=== PATIENT | female | born 2000 | race American Indian/Alaskan Native ===

== ENCOUNTER 2020-10-19 09:31 | Emergency (ER) | payer MEDICAID ==
[2020-10-19 10:05] VITALS: BP 101/70
--- NOTE | 2020-10-19 11:36 | Emergency Department Report ---
ED General Adult HPI - General Chief complaint: Anxiety Stated complaint: ANXIETY Time Seen by Provider: 10/19/20 11:02 Source: patient Mode of arrival: Ambulatory Limitations: No Limitations - History of Present Illness Initial comments: 20-year-old -German female patient presents with complaints of anxiety and increasing panic attacks since being out of her sertraline for 1 month. Patient states she has been taking sertraline for more than 1 year, however since moving to [place], she has had difficulty finding a psychiatrist who takes her insurance. She denies any SI/HI or hallucinations. Patient states sertraline 25 mg did work well for her. - Related Data Previous Rx's Medication Instructions Recorded Last Taken Type Ibuprofen [Motrin] 600 mg PO Q8H PRN #30 tablet 06/11/14 Unknown Rx traMADoL [Ultram] 50 mg PO Q4HR PRN #30 tablet 06/11/14 Unknown Rx Sertraline [Zoloft] 25 mg PO QDAY 30 Days #30 tab 10/19/20 Unknown Rx Allergies Allergy/AdvReac Type Severity Reaction Status Date / Time No Known Allergies Allergy Unverified 06/09/14 09:33 ED Review of Systems ROS: Stated complaint: ANXIETY Other details as noted in HPI Constitutional: denies: chills, diaphoresis, fever, malaise Respiratory: denies: cough, shortness of breath Cardiovascular: denies: chest pain Gastrointestinal: denies: abdominal pain, nausea, vomiting Genitourinary: denies: urgency, dysuria, frequency, hematuria Neurological: denies: headache, weakness, numbness, paresthesias ED Past Medical Hx - Past Medical History Previous Medical History?: Yes Hx Hypertension: No Hx Congestive Heart Failure: No Hx Diabetes: No Hx Deep Vein Thrombosis: No Hx Renal Disease: No Hx Sickle Cell Disease: No Hx Seizures: No Hx Psychiatric Treatment: Yes (anxiety, depression) Hx Asthma: No Hx COPD: No Hx HIV: No - Surgical History Past Surgical History?: No - Social History Smoking Status: Current Every Day Smoker Substance Use Type: Alcohol - Medications Home Medications: Home Medications Medication Instructions Recorded Confirmed Last Taken Type Ibuprofen [Motrin] 600 mg PO Q8H PRN #30 tablet 06/11/14 Unknown Rx traMADoL [Ultram] 50 mg PO Q4HR PRN #30 tablet 06/11/14 Unknown Rx Sertraline [Zoloft] 25 mg PO QDAY 30 Days #30 tab 10/19/20 Unknown Rx ED Physical Exam - General Limitations: No Limitations General appearance: alert, in no apparent distress - Head Head exam: Present: atraumatic, normocephalic - Eye Eye exam: Present: normal appearance. Absent: scleral icterus - Neck Neck exam: Present: normal inspection - Respiratory Respiratory exam: Present: normal lung sounds bilaterally. Absent: respiratory distress - Cardiovascular Cardiovascular Exam: Present: regular rate, normal rhythm. Absent: systolic murmur, diastolic murmur, rubs, gallop - Neurological Exam Neurological exam: Present: alert, oriented X3, normal gait - Psychiatric Psychiatric exam: Present: normal affect, normal mood. Absent: depressed, agitated, anxious, manic, homicidal ideation, suicidal ideation - Skin Skin exam: Present: warm, dry, intact, normal color. Absent: rash ED Course Vital Signs 10/19/20 10:02 Temperature 98.5 F Pulse Rate 99 H Respiratory 18 Rate Blood Pressure 101/70 O2 Sat by Pulse 99 Oximetry ED Medical Decision Making - Medical Decision Making 20-year-old -German female patient presents with complaints of anxiety and increasing panic attacks since being out of her sertraline for 1 month. Patient states she has been taking sertraline for more than 1 year, however since moving to [place], she has had difficulty finding a psychiatrist who takes her insurance. She denies any SI/HI or hallucinations. Patient states sertraline 25 mg did work well for her. Refill given and patient also given Dr. Murray, psychiatry to follow-up with. Her vitals are normal, she is well-appearing stable for discharge home. Strict return precautions were discussed in detail with patient who verbalizes understanding. Critical care attestation.: If time is entered above; I have spent that time in minutes in the direct care of this critically ill patient, excluding procedure time. ED Disposition Clinical Impression: Anxiety Disposition: DC-01 TO HOME OR SELFCARE Is pt being admited?: No Condition: Stable Instructions: Managing Anxiety, Adult Prescriptions: Sertraline [Zoloft] 25 mg PO QDAY 30 Days #30 tab Referrals: LISA MURRAY MD [Staff Physician] - 3-5 Days
== END 2020-10-19 11:44 | disposition home or self-care (01) ==
LOC: ED 09:31
DX: F41.9 Anxiety disorder, unspecified (principal); F32.9 Major depressive disorder, single episode, unspecified; F17.200 Nicotine dependence, unspecified, uncomplicated; Z79.1 Long term (current) use of non-steroidal anti-inflammatories (NSAID); Z79.899 Other long term (current) drug therapy
CPT/HCPCS: 99282

== ENCOUNTER 2020-11-27 09:31 | Emergency (ER) | payer MEDICAID ==
[2020-11-27 10:02] VITALS: BP 116/62
[2020-11-27] MEDS ORDERED: METOCLOPRAMIDE 10 MG/2 ML INJ IV ONE (10:21)
[2020-11-27] MEDS ORDERED: SODIUM CHLORIDE 0.9% 1000 ML 1,000 ML IV ONE ×2 (10:21→11:31)
[2020-11-27] MEDS ORDERED: ACETAMINOPHEN 500 MG TAB PO ONE (10:21)
[2020-11-27 10:49] LABS: Basophils % (Auto) 0.5 % (0.0-1.8); Eosinophils # (Auto) 0.2 K/mm3 (0.0-0.4); Eosinophils % (Auto) 2.2 % (0.0-4.3); Hematocrit 41.2 % (30.3-42.9); Hemoglobin 14.3 gm/dl (10.1-14.3); Lymphocytes # (Auto) 1.7 K/mm3 (1.2-5.4); Lymphocytes % (Auto) 21.1 % (13.4-35.0); Mean Corpuscular HGB Conc 35 % (30-34); Mean Corpuscular Volume 98 fl (79-97); Monocytes # (Auto) 0.7 K/mm3 (0.0-0.8); Monocytes % (Auto) 8.4 % (0.0-7.3); Platelet Count 230 K/mm3 (140-440); Red Cell Distribution Width 12.6 % (13.2-15.2)
[2020-11-27 11:08] LABS: Blood Urea Nitrogen 12 mg/dL (7-17); Calcium 9.6 mg/dL (8.4-10.2); Hemolysis Index 4
[2020-11-27 11:10] LABS: BUN/Creatinine Ratio 20
[2020-11-27 11:11] LABS: Alanine Aminotransferase 16 units/L (7-56); Albumin 4.5 g/dL (3.9-5)
[2020-11-27 11:26] LABS: Bilirubin,Urine NEG (Negative); Blood,Urine NEG (Negative); Color,Urine Yellow (Yellow); Mucus,Urine 3+ /HPF
[2020-11-27 11:35] LABS: Bilirubin,Direct < 0.2 mg/dL (0-0.2)
--- NOTE | 2020-11-27 11:37 | Emergency Department Report ---
ED N/V/D HPI - General Chief complaint: Nausea/Vomiting/Diarrhea Stated complaint: 6 WKS /NO ENERGY/CANT EAT Time Seen by Provider: 11/27/20 10:05 Source: patient Mode of arrival: Ambulatory Limitations: No Limitations - History of Present Illness Initial comments: This is a 20-year-old female nontoxic, well nourished in appearance, no acute signs of distress presents to the ED with c/o of nausea and vomiting several days. Patient stated she is going about 6 weeks . Patient stated has some pelvic cramping as well. Denies any vaginal bleeding. Patient describes vomiting as food content. Patient denies any mid or upper abdominal pain, chest pain, short of breath, fever, chills, headache, stiff neck, numbness or tingling. Patient denies any diarrhea or constipation. Denies any blood in stool. Patient denies any urinary symptoms. Denies any vaginal discharge. Patient denies any recent travels. Patient denies any drug allergies significant past medical history. MD complaint: nausea, vomiting, other (pelvic cramping) -: days(s) Description of Vomiting: food contents Associated Abdominal Pain: No Radiation: none Severity: mild Pain Scale: 3 Quality: cramping Consistency: intermittent Improves with: none Worsens with: none Associated Symptoms: nausea/vomiting. denies: myalgias, chest pain, cough, diaphoresis, fever/chills, headaches, loss of appetite, malaise, rash, dysuria, shortness of breath, syncope, weakness - Related Data Previous Rx's Medication Instructions Recorded Last Taken Type Ibuprofen [Motrin] 600 mg PO Q8H PRN #30 tablet 06/11/14 Unknown Rx traMADoL [Ultram] 50 mg PO Q4HR PRN #30 tablet 06/11/14 Unknown Rx Sertraline [Zoloft] 25 mg PO QDAY 30 Days #30 tab 10/19/20 Unknown Rx Metoclopramide [Reglan] 10 mg PO Q12H PRN #12 tab 11/27/20 Unknown Rx 21/Iron Fu/Folic Acid 1 each PO DAILY #30 tablet 11/27/20 Unknown Rx [ Complete Caplet] Allergies Allergy/AdvReac Type Severity Reaction Status Date / Time No Known Allergies Allergy Verified 11/27/20 09:59 ED Review of Systems ROS: Stated complaint: 6 WKS /NO ENERGY/CANT EAT Other details as noted in HPI Comment: All other systems reviewed and negative Constitutional: denies: chills, fever Eyes: denies: eye pain, eye discharge, vision change ENT: denies: ear pain, throat pain Respiratory: denies: cough, shortness of breath, wheezing Cardiovascular: denies: chest pain, palpitations Endocrine: no symptoms reported Gastrointestinal: nausea, vomiting. denies: abdominal pain, diarrhea, constipation, hematemesis, melena, hematochezia Genitourinary: denies: urgency, dysuria, discharge Musculoskeletal: denies: back pain, joint swelling, arthralgia Skin: denies: rash, lesions Neurological: denies: headache, weakness, paresthesias Psychiatric: denies: anxiety, depression Hematological/Lymphatic: denies: easy bleeding, easy bruising ED Past Medical Hx - Past Medical History Hx Hypertension: No Hx Congestive Heart Failure: No Hx Diabetes: No Hx Deep Vein Thrombosis: No Hx Renal Disease: No Hx Sickle Cell Disease: No Hx Seizures: No Hx Psychiatric Treatment: Yes (anxiety, depression) Hx Asthma: No Hx COPD: No Hx HIV: No - Social History Smoking Status: Never Smoker Substance Use Type: None - Medications Home Medications: Home Medications Medication Instructions Recorded Confirmed Last Taken Type Ibuprofen [Motrin] 600 mg PO Q8H PRN #30 tablet 06/11/14 Unknown Rx traMADoL [Ultram] 50 mg PO Q4HR PRN #30 tablet 06/11/14 Unknown Rx Sertraline [Zoloft] 25 mg PO QDAY 30 Days #30 tab 10/19/20 Unknown Rx Metoclopramide [Reglan] 10 mg PO Q12H PRN #12 tab 11/27/20 Unknown Rx 21/Iron Fu/Folic Acid 1 each PO DAILY #30 tablet 11/27/20 Unknown Rx [ Complete Caplet] ED Physical Exam - General Limitations: No Limitations General appearance: alert, in no apparent distress - Head Head exam: Present: atraumatic, normocephalic - Eye Eye exam: Present: normal appearance - Neck Neck exam: Present: normal inspection, full ROM. Absent: tenderness, meningismus, lymphadenopathy - Respiratory Respiratory exam: Present: normal lung sounds bilaterally. Absent: respiratory distress, wheezes, rales, rhonchi, stridor, chest wall tenderness, accessory muscle use, decreased breath sounds, prolonged expiratory - Cardiovascular Cardiovascular Exam: Present: regular rate, normal rhythm, normal heart sounds. Absent: irregular rhythm, systolic murmur, diastolic murmur, rubs, gallop - GI/Abdominal GI/Abdominal exam: Present: soft, normal bowel sounds. Absent: distended, tenderness, guarding, rebound, rigid, diminished bowel sounds - Extremities Exam Extremities exam: Present: normal inspection, full ROM - Back Exam Back exam: Present: normal inspection, full ROM. Absent: tenderness, CVA tenderness (R), CVA tenderness (L), muscle spasm, paraspinal tenderness, vertebral tenderness, rash noted - Neurological Exam Neurological exam: Present: alert, oriented X3, normal gait - Psychiatric Psychiatric exam: Present: normal affect, normal mood - Skin Skin exam: Present: warm, dry, intact, normal color. Absent: rash ED Course Vital Signs 11/27/20 11/27/20 09:58 11:26 Temperature 98.5 F Pulse Rate 96 H Respiratory 20 20 Rate Blood Pressure 116/62 O2 Sat by Pulse 100 Oximetry - Reevaluation(s) Reevaluation #1: 11/27/20 11:33 Patient is speaking in full sentences with no signs of distress noted. ED Medical Decision Making - Lab Data Result diagrams: 11/27/20 10:22 11/27/20 10:22 Lab Results 11/27/20 11/27/20 11/27/20 Range/Units 10:22 10:22 10:22 WBC 8.1 (4.5-11.0) K/mm3 RBC 4.20 (3.65-5.03) M/mm3 Hgb 14.3 (10.1-14.3) gm/dl Hct 41.2 (30.3-42.9) % MCV 98 H (79-97) fl MCH 34 H (28-32) pg MCHC 35 H (30-34) % RDW 12.6 L (13.2-15.2) % Plt Count 230 (140-440) K/mm3 Lymph % (Auto) 21.1 (13.4-35.0) % [place] % (Auto) 8.4 H (0.0-7.3) % Eos % (Auto) 2.2 (0.0-4.3) % Baso % (Auto) 0.5 (0.0-1.8) % Lymph # (Auto) 1.7 (1.2-5.4) K/mm3 [place] # (Auto) 0.7 (0.0-0.8) K/mm3 Eos # (Auto) 0.2 (0.0-0.4) K/mm3 Baso # (Auto) 0.0 (0.0-0.1) K/mm3 Seg Neutrophils % 67.8 (40.0-70.0) % Seg Neutrophils # 5.5 (1.8-7.7) K/mm3 Sodium 130 L (137-145) mmol/L Potassium 3.7 (3.6-5.0) mmol/L Chloride 95.9 L (98-107) mmol/L Carbon Dioxide 26 (22-30) mmol/L Anion Gap 12 mmol/L BUN 12 (7-17) mg/dL Creatinine 0.6 (0.6-1.2) mg/dL Estimated GFR > 60 ml/min BUN/Creatinine Ratio 20 % Glucose 107 H (65-100) mg/dL Calcium 9.6 (8.4-10.2) mg/dL Total Bilirubin (0.1-1.2) mg/dL Direct Bilirubin (0-0.2) mg/dL Indirect Bilirubin mg/dL AST (5-40) units/L ALT (7-56) units/L Alkaline Phosphatase (35-129) units/L Total Protein (6.3-8.2) g/dL Albumin (3.9-5) g/dL Albumin/Globulin Ratio % Lipase (13-60) units/L HCG, Quant 20108 H (0-4) mIU/mL Urine Color (Yellow) Urine Turbidity (Clear) Urine pH (5.0-7.0) Ur Specific Marine (1.003-1.030) Urine Protein (Negative) mg/dL Urine Glucose (UA) (Negative) mg/dL Urine Ketones (Negative) mg/dL Urine Blood (Negative) Urine Nitrite (Negative) Urine Bilirubin (Negative) Urine Urobilinogen (<2.0) mg/dL Ur Leukocyte Esterase (Negative) Urine WBC (Auto) (0.0-6.0) /HPF Urine RBC (Auto) (0.0-6.0) /HPF U Epithel Cells (Auto) (0-13.0) /HPF Urine Mucus /HPF 11/27/20 11/27/20 Range/Units 10:22 Unknown WBC (4.5-11.0) K/mm3 RBC (3.65-5.03) M/mm3 Hgb (10.1-14.3) gm/dl Hct (30.3-42.9) % MCV (79-97) fl MCH (28-32) pg MCHC (30-34) % RDW (13.2-15.2) % Plt Count (140-440) K/mm3 Lymph % (Auto) (13.4-35.0) % [place] % (Auto) (0.0-7.3) % Eos % (Auto) (0.0-4.3) % Baso % (Auto) (0.0-1.8) % Lymph # (Auto) (1.2-5.4) K/mm3 [place] # (Auto) (0.0-0.8) K/mm3 Eos # (Auto) (0.0-0.4) K/mm3 Baso # (Auto) (0.0-0.1) K/mm3 Seg Neutrophils % (40.0-70.0) % Seg Neutrophils # (1.8-7.7) K/mm3 Sodium (137-145) mmol/L Potassium (3.6-5.0) mmol/L Chloride (98-107) mmol/L Carbon Dioxide (22-30) mmol/L Anion Gap mmol/L BUN (7-17) mg/dL Creatinine (0.6-1.2) mg/dL Estimated GFR ml/min BUN/Creatinine Ratio % Glucose (65-100) mg/dL Calcium (8.4-10.2) mg/dL Total Bilirubin 0.60 (0.1-1.2) mg/dL Direct Bilirubin < 0.2 (0-0.2) mg/dL Indirect Bilirubin 0.4 mg/dL AST 14 (5-40) units/L ALT 16 (7-56) units/L Alkaline Phosphatase 55 (35-129) units/L Total Protein 7.5 (6.3-8.2) g/dL Albumin 4.5 (3.9-5) g/dL Albumin/Globulin Ratio 1.5 % Lipase 12 L (13-60) units/L HCG, Quant (0-4) mIU/mL Urine Color Yellow (Yellow) Urine Turbidity Slightly-cloudy (Clear) Urine pH 7.0 (5.0-7.0) Ur Specific Marine 1.029 (1.003-1.030) Urine Protein 30 mg/dl (Negative) mg/dL Urine Glucose (UA) 50 (Negative) mg/dL Urine Ketones 80 (Negative) mg/dL Urine Blood Neg (Negative) Urine Nitrite Neg (Negative) Urine Bilirubin Neg (Negative) Urine Urobilinogen 4.0 (<2.0) mg/dL Ur Leukocyte Esterase Tr (Negative) Urine WBC (Auto) 2.0 (0.0-6.0) /HPF Urine RBC (Auto) 1.0 (0.0-6.0) /HPF U Epithel Cells (Auto) 4.0 (0-13.0) /HPF Urine Mucus 3+ /HPF - Radiology Data [facility] [address] [id number] Ultrasound Report Signed Patient: KEANU ANDRADE MR#: [id number] : 2000 Acct:[id number] Age/Sex: 20 / F ADM Date: 11/27/20 Loc: ED Attending Dr: Ordering Physician: RIVERA GOMEZ NP Date of Service: 11/27/20 Procedure(s): US OB transvaginal Accession Number(s): [id number] cc: RIVERA GOMEZ NP ULTRASOUND OBSTETRIC INDICATION: pelvic pain. TECHNIQUE: Transabdominal and Transvaginal. COMPARISON: None available. FINDINGS: GESTATIONAL SAC: Well-defined oval shape and intrauterine in location. YOLK SAC: No significant abnormality. EMBRYO/FETUS: No significant abnormality. - [place]-Rump Length = 0.7 cm = 6 weeks, 4 day(s). - Heart Rate = 130 beats per minute. ADNEXA: A 2 cm probable left ovarian corpus luteum cyst is noted. No significant right adnexal abnormality. FREE FLUID: None. ADDITIONAL FINDINGS: There is an area of subchorionic hemorrhage of moderate size seen along the uterine fundus measuring 5.2 x 1.4 x 2.4 cm IMPRESSION: 1. Single, living intrauterine with estimated sonographic age of 6 weeks, 4 day(s). 2. Moderate subchorionic hemorrhage as above. Signer Name: Clayton Edwards MD Signed: 11/27/2020 11:47 AM Workstation Name: [id number] Transcribed By: THAD Dictated By: Clayton Edwards MD Electronically Authenticated By: Clayton Edwards MD Signed Date/Time: 11/27/201146 DD/ 114 TD/TT: [facility] [address] [place] [address] Ultrasound Report Signed Patient: KEANU ANDRADE MR#: [id number] : 2000 Acct:[id number] Age/Sex: 20 / F ADM Date: 11/27/20 Loc: ED Attending Dr: Ordering Physician: RIVERA GOMEZ NP Date of Service: 11/27/20 Procedure(s): US OB <= 14 weeks fetus Accession Number(s): [id number] cc: RIVERA GOMEZ NP ULTRASOUND OBSTETRIC INDICATION: pelvic pain. TECHNIQUE: Transabdominal and Transvaginal. COMPARISON: None available. FINDINGS: GESTATIONAL SAC: Well-defined oval shape and intrauterine in location. YOLK SAC: No significant abnormality. EMBRYO/FETUS: No significant abnormality. - [place] Length = 0.7 cm = 6 weeks, 4 day(s). - Heart Rate = 130 beats per minute. ADNEXA: A 2 cm probable left ovarian corpus luteum cyst is noted. No significant right adnexal abnormality. FREE FLUID: None. ADDITIONAL FINDINGS: There is an area of subchorionic hemorrhage of moderate size seen along the uterine fundus measuring 5.2 x 1.4 x 2.4 cm IMPRESSION: 1. Single, living intrauterine with estimated sonographic age of 6 weeks, 4 day(s). 2. Moderate subchorionic hemorrhage as above. Signer Name: Clayton Edwards MD Signed: 11/27/2020 11:47 AM Workstation Name: [id number] Transcribed By: THAD Dictated By: Clayton Edwards MD Electronically Authenticated By: Clayton Edwards MD Signed Date/Time: 11/27/201146 DD/ 114 TD/TT: - Medical Decision Making This is a 20-year-old female that presents with hyperemesis. Patient is stable and was examined by me. There is no abdominal tenderness. Negative signs of symptoms of appendicitis, cholecystitis or acute abdomen. Labs obtained. UA obtained. OB ultrasound and transvaginal obtained and dictated by the radiologist. Patient is notified of the report with no questions noted by the patient. Vital signs are stable prior to discharge. Patient received Reglan and 1L Normal saline in the ED which patient stated symptoms has resovled and subsided. A by mouth challenge has been obtained and patient tolerated well with no nausea vomiting. Patient was also instructed to Follow-up with a SENIOR CASE MANAGER doctor in 3-5 days or if symptoms worsen and continue return to emergency room as soon as possible. At time of discharge, the patient does not seem toxic or ill in appearance. No acute signs of distress noted. Patient agrees to discharge treatment plan of care. No further questions noted by the patient. Critical care attestation.: If time is entered above; I have spent that time in minutes in the direct care of this critically ill patient, excluding procedure time. ED Disposition Clinical Impression: Hyperemesis gravidarum Disposition: TO HOME OR SELFCARE Is pt being admited?: No Does the pt Need Aspirin: No Condition: Stable Instructions: Hyperemesis Gravidarum Additional Instructions: Follow-up with a SENIOR CASE MANAGER doctor in 3-5 days or if symptoms worsen and continue return to emergency room as soon as possible. Prescriptions: 21/Iron Fu/Folic Acid [ Complete Caplet] 1 each PO DAILY #30 tablet Metoclopramide [Reglan] 10 mg PO Q12H PRN #12 tab PRN Reason: Nausea Referrals: [facility] MD NABIL [Primary Care Provider] - 3-5 Days [facility] [Provider Group] - 3-5 Days [facility] [Provider Group] - 3-5 Days Forms: Work/School Release Form(ED) Time of Disposition: 11:56
--- NOTE | 2020-11-27 11:52 | Ultrasound Report ---
ULTRASOUND OBSTETRIC INDICATION: pelvic pain. TECHNIQUE: Transabdominal and Transvaginal. COMPARISON: None available. FINDINGS: GESTATIONAL SAC: Well-defined oval shape and intrauterine in location. YOLK SAC: No significant abnormality. EMBRYO/FETUS: No significant abnormality. - [place]-Rump Length = 0.7 cm = 6 weeks, 4 day(s). - Heart Rate = 130 beats per minute. ADNEXA: A 2 cm probable left ovarian corpus luteum cyst is noted. No significant right adnexal abnorm ality. FREE FLUID: None. ADDITIONAL FINDINGS: There is an area of subchorionic hemorrhage of moderate size seen along the uter ine fundus measuring 5.2 x 1.4 x 2.4 cm IMPRESSION: 1. Single, living intrauterine with estimated sonographic age of 6 weeks, 4 day(s). 2. Moderate subchorionic hemorrhage as above. Signer Name: Clayton Edwards MD Signed: 11/27/2020 11:47 AM Workstation Name: [id number]
--- NOTE | 2020-11-27 11:52 | Ultrasound Report ---
ULTRASOUND OBSTETRIC INDICATION: pelvic pain. TECHNIQUE: Transabdominal and Transvaginal. COMPARISON: None available. FINDINGS: GESTATIONAL SAC: Well-defined oval shape and intrauterine in location. YOLK SAC: No significant abnormality. EMBRYO/FETUS: No significant abnormality. - [place]-Rump Length = 0.7 cm = 6 weeks, 4 day(s). - Heart Rate = 130 beats per minute. ADNEXA: A 2 cm probable left ovarian corpus luteum cyst is noted. No significant right adnexal abnorm ality. FREE FLUID: None. ADDITIONAL FINDINGS: There is an area of subchorionic hemorrhage of moderate size seen along the uter ine fundus measuring 5.2 x 1.4 x 2.4 cm IMPRESSION: 1. Single, living intrauterine with estimated sonographic age of 6 weeks, 4 day(s). 2. Moderate subchorionic hemorrhage as above. Signer Name: Clayton Edwards MD Signed: 11/27/2020 11:47 AM Workstation Name: [id number]
== END 2020-11-27 13:21 | disposition home or self-care (01) ==
LOC: ED 09:31
DX: O21.0 Mild hyperemesis gravidarum (principal); F41.9 Anxiety disorder, unspecified; F32.9 Major depressive disorder, single episode, unspecified; Z3A.01 Less than 8 weeks gestation of pregnancy; Z79.1 Long term (current) use of non-steroidal anti-inflammatories (NSAID); Z79.899 Other long term (current) drug therapy
CPT/HCPCS: 36415; 76801; 76817; 80048; 80076; 81001; 83690; 84702; 85025; 96361; 96374; 99284; J2765; J7030

== ENCOUNTER 2020-12-14 16:30 | Emergency (ER) | payer MEDICAID ==
[2020-12-14] MEDS ORDERED: ACETAMINOPHEN 500 MG TAB PO ONE (17:12)
--- NOTE | 2020-12-14 17:15 | Event Note ---
ED Screening Note Date of service: 12/14/20 Time: 17:12 ED Screening Note: 20-year-old female (9 weeks gestation) presents to the emergency department with complaints of headache, neck pain, and nausea for 2 days. No preceding fall, trauma, or injury. Pain is worse with movement of the neck in all directions. No medications prior to arrival. No known sick contacts. Patient received childhood vaccinations. No complications with to date. This is patient's second . Tearful and tachycardic in triage. General: Awake, appropriately interactive. Appears uncomfortable, tearful. Neck: Diffusely tender with limited range of motion in all directions. Cardiovascular: Tachycardic. Normal peripheral perfusion. Pulmonary: No respiratory distress. Patient is speaking normally without use of accessory muscles. Skin: No apparent rashes or lesions. Neurological: No facial asymmetry. Speech is clear. Follows commands. Patient is alert and oriented. Musculoskeletal: Moves all four extremities spontaneously with normal range of motion. Psych: Cooperative. Appropriate mood and affect. I have greeted and performed a focused rapid initial assessment of this patient. A comprehensive ED assessment and evaluation of the patient, analysis of all test results, and completion of the medical decision-making process will be conducted by additional ED providers. This initial assessment/diagnostic orders/clinical plan/treatment(s) is/are subject to change based on patients health status, clinical progression and re-assessment. Further treatment and workup at subsequent clinical provider's discretion. Patient/guardian urged not to elope from the ED as their condition may be serious if not clinically assessed and managed.
[2020-12-14 17:37] LABS: Basophils % (Auto) 0.2 % (0.0-1.8); Eosinophils # (Auto) 0.3 K/mm3 (0.0-0.4); Eosinophils % (Auto) 2.6 % (0.0-4.3); Hematocrit 41.7 % (30.3-42.9); Hemoglobin 13.7 gm/dl (10.1-14.3); Lymphocytes # (Auto) 1.9 K/mm3 (1.2-5.4); Lymphocytes % (Auto) 18.1 % (13.4-35.0); Mean Corpuscular HGB Conc 33 % (30-34); Mean Corpuscular Volume 100 fl (79-97); Monocytes # (Auto) 0.9 K/mm3 (0.0-0.8); Monocytes % (Auto) 8.6 % (0.0-7.3); Platelet Count 261 K/mm3 (140-440); Red Blood Count 4.16 M/mm3 (3.65-5.03); Red Cell Distribution Width 12.6 % (13.2-15.2)
[2020-12-14 17:59] LABS: Alanine Aminotransferase 13 units/L (7-56); Albumin 4.3 g/dL (3.9-5); Blood Urea Nitrogen 4 mg/dL (7-17); Hemolysis Index 1
[2020-12-14 18:06] LABS: BUN/Creatinine Ratio 10
[2020-12-14 18:53] LABS: Bacteria,Urine 2+ /HPF (Negative); Bilirubin,Urine NEG (Negative); Blood,Urine NEG (Negative); Color,Urine Yellow (Yellow); Mucus,Urine FEW /HPF; Protein,Urine <15 mg/dL mg/dL (Negative); Urobilinogen,Urine < 2.0 mg/dL (<2.0)
--- NOTE | 2020-12-14 20:11 | Emergency Department Report ---
ED General Adult HPI - General Chief complaint: Neck Pain/Injury Stated complaint: NECK PAIN Time Seen by Provider: 12/14/20 20:04 Source: patient Mode of arrival: Ambulatory Limitations: No Limitations - History of Present Illness Initial comments: Patient is 20 years old female 2 para 1 at 9 weeks gestation. Patient presented to the ER complaining of neck pain started this morning. Patient stated that pain increases when she move her neck. Patient stated that she slept wrong. Patient denied any injury. No fever or stiff neck or headache. Patient denied any abdominal pain. No vaginal bleeding or vaginal discharge. Patient is complaining of nausea and stated this is her usual nausea with . Patient received Tylenol in triage and stated that it helped a lot. Severity scale (0 -10): 8 - Related Data Previous Rx's Medication Instructions Recorded Last Taken Type Ibuprofen [Motrin] 600 mg PO Q8H PRN #30 tablet 06/11/14 Unknown Rx traMADoL [Ultram] 50 mg PO Q4HR PRN #30 tablet 06/11/14 Unknown Rx Sertraline [Zoloft] 25 mg PO QDAY 30 Days #30 tab 10/19/20 Unknown Rx Metoclopramide [Reglan] 10 mg PO Q12H PRN #12 tab 11/27/20 Unknown Rx 21/Iron Fu/Folic Acid 1 each PO DAILY #30 tablet 11/27/20 Unknown Rx [ Complete Caplet] Allergies Allergy/AdvReac Type Severity Reaction Status Date / Time No Known Allergies Allergy Verified 11/27/20 09:59 ED Review of Systems ROS: Stated complaint: NECK PAIN Other details as noted in HPI Comment: All other systems reviewed and negative Constitutional: denies: chills, fever Respiratory: denies: cough, shortness of breath, SOB with exertion Cardiovascular: denies: chest pain, palpitations Gastrointestinal: nausea. denies: abdominal pain, vomiting Musculoskeletal: myalgia. denies: back pain Neurological: denies: headache ED Past Medical Hx - Past Medical History Previous Medical History?: Yes Hx Hypertension: No Hx Congestive Heart Failure: No Hx Diabetes: No Hx Deep Vein Thrombosis: No Hx Renal Disease: No Hx Sickle Cell Disease: No Hx Seizures: No Hx Psychiatric Treatment: Yes (anxiety, depression) Hx Asthma: No Hx COPD: No Hx HIV: No Additional medical history: Vaginal delivery in 2013 @ age 14 - Surgical History Past Surgical History?: No - Social History Smoking Status: Never Smoker Substance Use Type: None - Medications Home Medications: Home Medications Medication Instructions Recorded Confirmed Last Taken Type Ibuprofen [Motrin] 600 mg PO Q8H PRN #30 tablet 06/11/14 Unknown Rx traMADoL [Ultram] 50 mg PO Q4HR PRN #30 tablet 06/11/14 Unknown Rx Sertraline [Zoloft] 25 mg PO QDAY 30 Days #30 tab 10/19/20 Unknown Rx Metoclopramide [Reglan] 10 mg PO Q12H PRN #12 tab 11/27/20 Unknown Rx 21/Iron Fu/Folic Acid 1 each PO DAILY #30 tablet 11/27/20 Unknown Rx [ Complete Caplet] ED Physical Exam - General Limitations: No Limitations General appearance: alert, in no apparent distress - Head Head exam: Present: atraumatic, normocephalic, normal inspection - Eye Eye exam: Present: normal appearance, PERRL - ENT ENT exam: Present: normal exam, mucous membranes moist - Neck Neck exam: Present: normal inspection. Absent: tenderness, meningismus, full ROM (Slightly decreased range of motion, muscle spasm.), lymphadenopathy - Respiratory Respiratory exam: Present: normal lung sounds bilaterally - Cardiovascular Cardiovascular Exam: Present: regular rate, normal rhythm, normal heart sounds - GI/Abdominal GI/Abdominal exam: Present: soft, normal bowel sounds. Absent: distended, tenderness, guarding, rebound, rigid, organomegaly, mass, bruit, pulsatile mass, hernia - Extremities Exam Extremities exam: Present: normal inspection, full ROM, normal capillary refill. Absent: tenderness - Back Exam Back exam: Present: normal inspection, full ROM. Absent: CVA tenderness (R), CVA tenderness (L) - Neurological Exam Neurological exam: Present: alert, oriented X3, CN II-XII intact, normal gait, reflexes normal. Absent: motor sensory deficit - Psychiatric Psychiatric exam: Present: normal mood - Skin Skin exam: Present: warm, intact, normal color ED Course Vital Signs 12/14/20 12/14/20 12/14/20 16:42 16:45 17:32 Temperature 98.6 F 98.6 F Pulse Rate 106 H 106 H Respiratory 15 20 20 Rate Blood Pressure 129/71 129/71 O2 Sat by Pulse 100 100 Oximetry 12/14/20 19:56 Temperature Pulse Rate Respiratory 16 Rate Blood Pressure O2 Sat by Pulse 98 Oximetry ED Medical Decision Making - Lab Data Result diagrams: 12/14/20 17:18 12/14/20 17:18 - Medical Decision Making Patient is 20 years old female 2 para 1 at 9 weeks gestation. Patient presented to the ER complaining of neck pain started this morning. Patient stated that pain increases when she move her neck. Patient stated that she slept wrong. Patient denied any injury. No fever or stiff neck or headache. Patient denied any abdominal pain. No vaginal bleeding or vaginal discharge. Patient is complaining of nausea and stated this is her usual nausea with . Patient received Tylenol in triage and stated that it helped a lot. Labs reviewed and is unremarkable. Neck exam is benign and I do not feel patient needs x-ray at this moment since there is no focal tenderness or significant decrease of range of motion. No concerning symptoms about . Patient improved with Tylenol. Patient advised to follow-up with her OB in the next 2 to 3 days and to return to the ER if she develop any new symptoms. Critical care attestation.: If time is entered above; I have spent that time in minutes in the direct care of this critically ill patient, excluding procedure time. ED Disposition Clinical Impression: Acute neck pain, Disposition: DC-01 TO HOME OR SELFCARE Is pt being admited?: No Condition: Stable Instructions: Care Referrals: PRIMARY CARE [Primary Care Provider] - 3-5 Days
[2020-12-14 20:15] VITALS: BP 116/59
== END 2020-12-14 20:23 | disposition home or self-care (01) ==
LOC: ED 16:30
DX: O26.891 Other specified pregnancy related conditions, first trimester (principal); M54.2 Cervicalgia; O99.341 Other mental disorders complicating pregnancy, first trimester; F41.9 Anxiety disorder, unspecified; F32.9 Major depressive disorder, single episode, unspecified; Z79.899 Other long term (current) drug therapy; Z3A.09 9 weeks gestation of pregnancy
CPT/HCPCS: 36415; 80053; 81001; 82140; 82550; 83735; 84702; 85025; 99283

== ENCOUNTER 2021-02-05 17:25 | Emergency (ER) | payer MEDICAID ==
[2021-02-05 20:16] LABS: Basophils % (Auto) 0.1 % (0.0-1.8); Eosinophils # (Auto) 0.3 K/mm3 (0.0-0.4); Eosinophils % (Auto) 2.7 % (0.0-4.3); Hematocrit 39.1 % (30.3-42.9); Hemoglobin 13.2 gm/dl (10.1-14.3); Lymphocytes # (Auto) 1.6 K/mm3 (1.2-5.4); Mean Corpuscular HGB Conc 34 % (30-34); Mean Corpuscular Volume 100 fl (79-97); Monocytes # (Auto) 0.9 K/mm3 (0.0-0.8); Monocytes % (Auto) 8.1 % (0.0-7.3); Platelet Count 199 K/mm3 (140-440); Red Cell Distribution Width 12.3 % (13.2-15.2)
[2021-02-05 20:24] LABS: Alanine Aminotransferase 10 units/L (7-56); Albumin 3.7 g/dL (3.9-5); Blood Urea Nitrogen 8 mg/dL (7-17); Calcium 8.6 mg/dL (8.4-10.2); Hemolysis Index 5
[2021-02-05 20:25] LABS: BUN/Creatinine Ratio 16
--- NOTE | 2021-02-05 21:36 | Ultrasound Report ---
Limited OB ultrasound INDICATION: Pelvic pain and spotting for 2 days FINDINGS: There is a single intrauterine in a transverse presentation with head on maternal left. Amniotic fluid volume appears normal. The placenta is located posteriorly and appears to be marginal. The inferior end of the placenta is a djacent to the cervical os. The placenta is grade 1. The cervix measures 3.6 cm in length. heart rate is 156 bpm. IMPRESSION: The placenta is marginal with the inferior tip along the cervical os. This will need to b e followed as progresses. Cervix measures 3.6 cm. Signer Name: Magnus Elliott MD Signed: 02/05/2021 9:32 PM Workstation Name: [id number]
--- NOTE | 2021-02-05 21:38 | Ultrasound Report ---
Limited OB ultrasound INDICATION: Transvaginal imaging FINDINGS: The placenta location is marginal with the inferior tip of the placenta along the cervical os. The placenta is located posteriorly. Signer Name: Magnus Elliott MD Signed: 02/05/2021 9:33 PM Workstation Name: [id number]
--- NOTE | 2021-02-05 23:40 | Emergency Department Report ---
ED Abdominal Pain HPI - General Chief Complaint: Abdominal Pain Stated Complaint: BLEEDING RASH Time Seen by Provider: 02/05/21 23:19 Source: patient Mode of arrival: Ambulatory Limitations: No Limitations - History of Present Illness Initial Comments: Patient is a 21-year-old G2, who is currently 16 weeks , who presents for abdominal pain and spotting x2 days. Last spotting seen 1 day ago. Patient denies fevers, chills, abnormal vaginal discharge. There is no back pain. No nausea or vomiting. Patient does have [employer] Dr. Johnson, and has follow-up appointment with same. Patient advises she wanted to come in to make sure baby was okay. MD Complaint: abdominal pain Severity scale (0 -10): 3 - Related Data Previous Rx's Medication Instructions Recorded Last Taken Type Ibuprofen [Motrin] 600 mg PO Q8H PRN #30 tablet 06/11/14 Unknown Rx traMADoL [Ultram] 50 mg PO Q4HR PRN #30 tablet 06/11/14 Unknown Rx Sertraline [Zoloft] 25 mg PO QDAY 30 Days #30 tab 10/19/20 Unknown Rx Metoclopramide [Reglan] 10 mg PO Q12H PRN #12 tab 11/27/20 Unknown Rx 21/Iron Fu/Folic Acid 1 each PO DAILY #30 tablet 11/27/20 Unknown Rx [ Complete Caplet] Acetaminophen 500 mg PO TID PRN #30 capsule 12/14/20 Unknown Rx Clotrimazole [Antifungal Ringworm] 1 applicatio TP BID 14 Days #1 tube 02/05/21 Unknown Rx Allergies Allergy/AdvReac Type Severity Reaction Status Date / Time No Known Allergies Allergy Verified 11/27/20 09:59 ED Review of Systems ROS: Stated complaint: BLEEDING RASH Other details as noted in HPI Constitutional: denies: chills, fever Eyes: denies: eye pain, eye discharge, vision change ENT: denies: ear pain, throat pain Respiratory: denies: cough, shortness of breath, wheezing Cardiovascular: denies: chest pain, palpitations Endocrine: no symptoms reported Gastrointestinal: abdominal pain. denies: nausea, vomiting Genitourinary: other (vaginal spotting ). denies: urgency, dysuria, frequency, hematuria, discharge Musculoskeletal: denies: back pain, joint swelling, arthralgia Skin: denies: rash, lesions Neurological: denies: headache, weakness, paresthesias Psychiatric: denies: anxiety, depression Hematological/Lymphatic: denies: easy bleeding, easy bruising ED Past Medical Hx - Past Medical History Previous Medical History?: No Hx Hypertension: No Hx Congestive Heart Failure: No Hx Diabetes: No Hx Deep Vein Thrombosis: No Hx Renal Disease: No Hx Sickle Cell Disease: No Hx Seizures: No Hx Psychiatric Treatment: Yes (anxiety, depression) Hx Asthma: No Hx COPD: No Hx HIV: No Additional medical history: Vaginal delivery in 2013 @ age 14 - Surgical History Past Surgical History?: No - Social History Smoking Status: Never Smoker Substance Use Type: None - Medications Home Medications: Home Medications Medication Instructions Recorded Confirmed Last Taken Type Ibuprofen [Motrin] 600 mg PO Q8H PRN #30 tablet 06/11/14 Unknown Rx traMADoL [Ultram] 50 mg PO Q4HR PRN #30 tablet 06/11/14 Unknown Rx Sertraline [Zoloft] 25 mg PO QDAY 30 Days #30 tab 10/19/20 Unknown Rx Metoclopramide [Reglan] 10 mg PO Q12H PRN #12 tab 11/27/20 Unknown Rx 21/Iron Fu/Folic Acid 1 each PO DAILY #30 tablet 11/27/20 Unknown Rx [ Complete Caplet] Acetaminophen 500 mg PO TID PRN #30 capsule 12/14/20 Unknown Rx Clotrimazole [Antifungal Ringworm] 1 applicatio TP BID 14 Days #1 tube 02/05/21 Unknown Rx ED Physical Exam - General Limitations: No Limitations General appearance: alert, in no apparent distress - Head Head exam: Present: atraumatic, normocephalic - Eye Eye exam: Present: normal appearance, EOMI Pupils: Present: normal accommodation - ENT ENT exam: Present: mucous membranes moist - Neck Neck exam: Present: normal inspection, full ROM. Absent: tenderness - Respiratory Respiratory exam: Present: normal lung sounds bilaterally. Absent: respiratory distress - Cardiovascular Cardiovascular Exam: Present: regular rate, normal rhythm. Absent: systolic murmur, diastolic murmur, rubs, gallop - GI/Abdominal GI/Abdominal exam: Present: soft, tenderness (bilat lower abd ), normal bowel sounds. Absent: distended, guarding, rebound, rigid, bruit, hernia - Rectal Rectal exam: Present: deferred - External exam: Present: other (deferred per patient) - Extremities Exam Extremities exam: Present: normal inspection - Back Exam Back exam: Present: normal inspection, full ROM. Absent: tenderness, CVA tenderness (R), CVA tenderness (L) - Neurological Exam Neurological exam: Present: alert, oriented X3, CN II-XII intact, normal gait - Psychiatric Psychiatric exam: Present: normal affect, normal mood - Skin Skin exam: Present: warm, dry, intact, normal color, rash (tinea left abd wall , dry flake raise rough, non painful no drainage, no fever ) ED Course Vital Signs 02/05/21 19:15 Temperature 98.5 F Pulse Rate 96 H Respiratory 16 Rate Blood Pressure 91/48 [Right] O2 Sat by Pulse 99 Oximetry ED Medical Decision Making - Lab Data Result diagrams: 02/05/21 19:46 02/05/21 19:46 Labs 02/05/21 02/05/21 02/05/21 19:46 19:46 19:46 WBC 11.5 H RBC 3.90 Hgb 13.2 Hct 39.1 MCV 100 H MCH 34 H MCHC 34 RDW 12.3 L Plt Count 199 Lymph % (Auto) 14.0 Rowan % (Auto) 8.1 H Eos % (Auto) 2.7 Baso % (Auto) 0.1 Lymph # (Auto) 1.6 Rowan # (Auto) 0.9 H Eos # (Auto) 0.3 Baso # (Auto) 0.0 Seg Neutrophils % 75.1 H Seg Neutrophils # 8.6 H Sodium 133 L Potassium 4.3 Chloride 100.1 Carbon Dioxide 22 Anion Gap 15 BUN 8 Creatinine 0.5 L Estimated GFR > 60 BUN/Creatinine Ratio 16 Glucose 158 H Calcium 8.6 Total Bilirubin < 0.20 AST 13 ALT 10 Alkaline Phosphatase 57 Total Protein 6.6 Albumin 3.7 L Albumin/Globulin Ratio 1.3 HCG, Quant 96518 H Blood Type Ord Rhogam Gestat Weeks 02/05/21 19:46 WBC RBC Hgb Hct MCV MCH MCHC RDW Plt Count Lymph % (Auto) Rowan % (Auto) Eos % (Auto) Baso % (Auto) Lymph # (Auto) Rowan # (Auto) Eos # (Auto) Baso # (Auto) Seg Neutrophils % Seg Neutrophils # Sodium Potassium Chloride Carbon Dioxide Anion Gap BUN Creatinine Estimated GFR BUN/Creatinine Ratio Glucose Calcium Total Bilirubin AST ALT Alkaline Phosphatase Total Protein Albumin Albumin/Globulin Ratio HCG, Quant Blood Type A POSITIVE Ord Rhogam Gestat Weeks Rh pos - Radiology Data Radiology results: report reviewed, image reviewed Limited OB ultrasound INDICATION: Pelvic pain and spotting for 2 days FINDINGS: There is a single intrauterine in a transverse presentation with head on maternal left. Amniotic fluid volume appears normal. The placenta is located posteriorly and appears to be marginal. The inferior end of the placenta is adjacent to the cervical os. The placenta is grade 1. The cervix m easures 3.6 cm in length. heart rate is 156 bpm. IMPRESSION: The placenta is marginal with the inferior tip along the cervical os. This will need to be followed as progresses. Cervix measures 3.6 cm. Signer Name: Magnus Elliott MD Signed: 02/05/2021 9:32 PM Workstation Name: [id number] Transcribed By: Dictated By: Magnus Elliott MD Electronically Authenticated By: Magnus Elliott MD Signed Date/Time: 02/05/212131 DD/ 29 TD/TT: Limited OB ultrasound INDICATION: Transvaginal imaging FINDINGS: The placenta location is marginal with the inferior tip of the placenta along the cervical os. The placenta is located posteriorly. Signer Name: Magnus Elliott MD Signed: 02/05/2021 9:33 PM Workstation Name: [id number] Transcribed By: Dictated By: Magnus Elliott MD Electronically Authenticated By: Magnus Elliott MD Signed Date/Time: 02/05/212132 DD/ 31 TD/TT: - Medical Decision Making US OB he placenta is marginal with the inferior tip along the cervical os. This will need to be followed as progresses. Cervix measures 3.6 cm., FHR: 156 bpm Critical care attestation.: If time is entered above; I have spent that time in minutes in the direct care of this critically ill patient, excluding procedure time. ED Disposition Clinical Impression: Threatened miscarriage in early , Ringworm of body Disposition: DC-01 TO HOME OR SELFCARE Is pt being admited?: No Does the pt Need Aspirin: No Condition: Stable Instructions: Abdominal Pain (ED), Threatened Miscarriage, Vaginal Bleeding During , First Trimester Additional Instructions: Follow-up with your [employer] in 1 to 2 days. Return to emergency should symptoms worsen. Prescriptions: Clotrimazole [Antifungal Ringworm] 1 applicatio TP BID 14 Days #1 tube Referrals: [facility] [Provider Group] - 3-5 Days Forms: Work/School Release Form(ED) Time of Disposition: 23:59
[2021-02-06 00:26] LABS: Amorphous Crystals,Urine 1+; Bacteria,Urine 3+ /HPF (Negative); Bilirubin,Urine NEG (Negative); Blood,Urine NEG (Negative); Color,Urine Yellow (Yellow); Mucus,Urine FEW /HPF; Protein,Urine <15 mg/dL mg/dL (Negative); Urobilinogen,Urine < 2.0 mg/dL (<2.0)
[2021-02-06 01:57] VITALS: BP 105/60
== END 2021-02-06 00:10 | disposition home or self-care (01) ==
LOC: ED 17:25
DX: O20.0 Threatened abortion (principal); O99.72 Diseases of the skin and subcutaneous tissue complicating childbirth; B35.4 Tinea corporis; F41.9 Anxiety disorder, unspecified; F32.9 Major depressive disorder, single episode, unspecified; Z3A.16 16 weeks gestation of pregnancy; Z79.1 Long term (current) use of non-steroidal anti-inflammatories (NSAID); Z79.899 Other long term (current) drug therapy
CPT/HCPCS: 36415; 76815; 76830; 80053; 81001; 84702; 85025; 86900; 86901